=== PATIENT | female | born 1965 | race Caucasian/White ===

== ENCOUNTER 2019-06-16 19:45 | Emergency (ER) | payer OTHER ==
[~2019-06-16] VITALS: Ht 170.2 cm; Wt 86.2 kg
[~2019-06-16 19:45] MED LIST: PROTONIX40 MG PO; TRAMADOL 50 MG50 MG PO
[2019-06-16] MEDS ORDERED: SPIRONOLACTONE100 M1 PO (20:36)
[2019-06-16] MEDS ORDERED: FLUOXETINE HCL40 MG PO (20:36)
[2019-06-16 21:21] LABS: URINE BILIRUBIN NEGATIVE (Negative); URINE BLOOD NEGATIVE (Negative); URINE CLARITY CLEAR; URINE COLOR YELLOW; URINE GLUCOSE-RANDOM* NEGATIVE (Negative); URINE KETONES NEGATIVE (Negative); URINE LEUKOCYTES-REFLEX NEGATIVE (Negative); URINE NITRITE-REFLEX NEGATIVE (Negative); URINE PROTEIN (DIPSTICK) NEGATIVE (Negative); URINE UROBILINOGEN 0.2 E.U./dl (0.2-1.0)
[2019-06-16 22:23] LABS: ABSOLUTE NEUTROPHILS 4.2 thou/uL (1.4-8.2); BASOPHILS 0.7 % (0.0-2.0); EOSINOPHILS 2.1 % (0.0-3.0); HEMATOCRIT 38.7 % (37.0-47.0); HEMOGLOBIN 12.9 gm/dL (12.0-15.0); LYMPHOCYTES 20.9 % (24.0-44.0); MCH 29.9 pg (26.0-34.0); MCHC 33.3 g/dL (28.0-37.0); MCV 89.6 fL (80.0-100.0); MONOCYTES 8.9 % (1.0-8.0); PLATELET COUNT 248 thou/uL (150-400); POLYS 67.4 % (36.0-66.0); RBC 4.32 mil/uL (4.20-5.00); RDW 13.4 % (10.5-14.5); WBC 6.3 thou/uL (4.0-11.0)
[2019-06-16 22:32] LABS: ANION GAP 7 mmol/L (7-16); BUN 9 mg/dL (7-18); CALCIUM 9.3 mg/dL (8.5-10.1); CHLORIDE 100 mmol/L (98-107); CO2 29 mmol/L (21-32); GLUCOSE 90 mg/dL (74-106); POTASSIUM 3.7 mmol/L (3.5-5.1); SODIUM 136 mmol/L (136-145)
[2019-06-16 22:42] LABS: ALBUMIN 3.7 g/dL (3.4-5.0); LIPASE 78 U/L (73-393); SGOT 17 U/L (15-37); SGPT 21 U/L (30-65); TOTAL BILIRUBIN 0.4 mg/dL (<0.1-1.0); TOTAL PROTEIN 6.9 g/dL (6.4-8.2); TROPONIN-I <0.06 ng/mL (<0.06)
[2019-06-17 00:11] VITALS: BP 122/65
--- NOTE | 2019-06-17 08:12 | EKG ---
[facility] [place] [address] ELECTROCARDIOGRAM REPORT Name: NANCY GALDAMEZ Room #: [facility]#: [id number] Admission: 06/16/19 Attend Phys: Discharge: 06/17/19 Date of : 63 Report #: [id number] THIS REPORT FOR: cc: FAM - No family physician/PCP FAM - No family physician/PCP Sung Hennessy MD [facility] THIS REPORT FOR: //name// [facility] ED Test Date: 2019-06-16 Test Time: 20:52:55 Pat Name: NANCY GALDAMEZ Department: Room: Gender: F Certified Orthoptist: ORI : 1965 Requested By: Angel Gonzalez Order Number: [id number] MD: Sung Hennessy Measurements Intervals [place] Rate: 60 P: -3 ND: 144 QRS: -57 QRSD: 105 T: 42 QT: 430 QTc: 430 Interpretive Statements Sinus rhythm Left anterior fascicular block Abnormal R-wave progression, late transition No previous ECG available for comparison Electronically Signed On 06-17-2019 8:10:50 CDT by Sung Hennessy [email or web address] <ELECTRONICALLY SIGNED> By: Sung Hennessy MD, FACC 06/17/19 0810 51 51 Sung Hennessy MD, [facility] /EPI
== END 2019-06-17 00:25 | disposition home or self-care (01) ==
LOC: ER 19:45
PROVIDERS: Emergency Medicine
DX: K25.9 Gastric ulcer, unspecified as acute or chronic, without hemorrhage or perforation (principal); K51.30 Ulcerative (chronic) rectosigmoiditis without complications; R19.7 Diarrhea, unspecified; Z90.49 Acquired absence of other specified parts of digestive tract; Z85.3 Personal history of malignant neoplasm of breast; Z90.710 Acquired absence of both cervix and uterus; Z90.13 Acquired absence of bilateral breasts and nipples; Z90.721 Acquired absence of ovaries, unilateral